=== PATIENT | female | born 1955 | race Two or more races ===

== ENCOUNTER → 2016-11-24 | Outpatient (CLI) | payer OTHER ==
--- NOTE | 2016-11-24 15:11 | REP ---
Clinical: Pain. Technique: AP, lateral, bilateral oblique and sunrise views of the right knee. Findings: Advanced tricompartmental osteoarthritic degenerative changes are appreciated. Diffuse soft tissue swelling is identified along with moderate to large suprapatellar effusion. No definite acute fracture is appreciated although subtle injury involving the lateral tibial plateau cannot be excluded. Impression: 1. Advanced tricompartmental osteoarthritic degenerative changes. 2. Moderate swelling and moderate to large suprapatellar effusion consistent with acute injury. No obvious acute fracture identified although subtle injury involving the lateral tibial plateau cannot be excluded. If the patient remains symptomatic consider CT for further investigation. Signed by David Mccormick MD 11/24/2016 03:02 P
== END ==
LOC: M LRY 14:36
PROVIDERS: ATTEND Physician Assistant
DX: M25.561 Pain in right knee (principal)